=== PATIENT | male | born 1955 | race Caucasian/White ===

== ENCOUNTER 2016-12-02 20:02 | Emergency (ER) | payer BC, OTHER ==
[~2016-12-02] VITALS: Ht 170.2 cm; Wt 67.0 kg
[2016-12-02 20:39] VITALS: Ht 170.2 cm; Wt 67.0 kg
[2016-12-02] MEDS ORDERED: SOD CHLORIDE 0.9% 1,000 ML IV STA (21:53)
[2016-12-02] MEDS ORDERED: ONDANSETRON 4 MG INJ IV STA (21:53)
[2016-12-02 22:32] LABS: ADD SCAN DIFF NO
[2016-12-02 22:36] LABS: BASOPHIL # 0.1 10^3/ul (0.0-0.1); BASOPHILS % 0.7 % (0.0-2.0); EOSINOPHILS % 0.5 % (0.0-7.0); HEMATOCRIT 44.4 % (42.0-52.0); HEMOGLOBIN 15.1 g/dl (14.0-18.0); LYMPHOCYTES # 2.2 10^3/ul (0.8-2.9); LYMPHOCYTES % 28.6 % (15.0-51.0); MEAN CORPUSCULAR HEMOGLOBIN 31.6 pg (29.0-33.0); MEAN CORPUSCULAR VOLUME 92.9 fl (82.0-101.0); MEAN PLATELET VOLUME 12.5 fl (7.4-10.4); MONOCYTE # 0.6 10^3/ul (0.3-0.9); MONOCYTES % 8.3 % (0.0-11.0); NEUTROPHIL # 4.7 10^3/ul (1.6-7.5); NEUTROPHILS % 61.5 % (39.0-77.0); PLATELET COUNT 262 10^3/UL (140-415); RED BLOOD COUNT 4.78 10^6/ul (4.70-6.10); RED CELL DISTRIBUTION WIDTH 11.9 % (11.5-14.5); WHITE BLOOD COUNT 7.7 10^3/ul (4.8-10.8)
[2016-12-02 22:41] LABS: ADD UMIC NO; URINE BILIRUBIN (Dip) NEGATIVE (NEGATIVE); URINE BLOOD (Dip) NEGATIVE (NEGATIVE); URINE COLOR LT. YELLOW (YELLOW); URINE GLUCOSE (Dip) NEGATIVE (NEGATIVE); URINE KETONES (Dip) NEGATIVE (NEGATIVE); URINE LEUKOCYTE ESTERASE (Dip) NEGATIVE (NEGATIVE); URINE NITRITE (Dip) NEGATIVE (NEGATIVE); URINE TOTAL PROTEIN (Dip) NEGATIVE (NEGATIVE); URINE UROBILINOGEN (Dip) 0.2 E.U./dL (0.1-1.0)
[2016-12-02 23:08] LABS: ALANINE AMINOTRANSFERASE 41 IU/L (13-69); ALBUMIN 4.4 g/dl (3.3-4.9); ALBUMIN/GLOBULIN RATIO 1.15; ALKALINE PHOSPHATASE 73 IU/L (42-121); ANION GAP 10 (8-16); ASPARTATE AMINO TRANSFERASE 30 IU/L (15-46); BILIRUBIN,INDIRECT 0.3 mg/dl (0-1.1); BILIRUBIN,TOTAL 0.3 mg/dl (0.2-1.3); BLOOD UREA NITROGEN 23 mg/dl (7-20); CALCIUM 9.8 mg/dl (8.4-10.2); CARBON DIOXIDE 28 mmol/L (21-31); CHLORIDE 105 mmol/L (97-110); CREATININE 0.81 mg/dl (0.61-1.24); GLUCOSE 103 mg/dl (70-220); POTASSIUM 4.4 mmol/L (3.5-5.1); SODIUM 139 mmol/L (135-144); TOTAL PROTEIN 8.2 g/dl (6.1-8.1)
[2016-12-02 23:25] LABS: TROPONIN-I < 0.012 ng/ml (0.00-0.12)
[2016-12-02] MEDS ORDERED: IBUP-1542 PO (23:36)
[2016-12-02] MEDS ORDERED: ONDA4TAB14 PO (23:36)
[2016-12-02] MEDS ORDERED: TRAM50TA2 PO (23:36)
[2016-12-02] MEDS ORDERED: LOPE2CAP PO (23:36)
--- NOTE | 2016-12-02 23:40 | ERD ---
ER Documentation Chief Complaint Date/Time DATE: 12/02/16 TIME: 23:37 Chief Complaint AP with Diarrhea and no appetite. feels dizzy and dehydrated HPI This is a 61-year-old male who presents complaining of abdominal pain with diarrhea and decreased appetite. There is no blood in his diarrhea or dark tarry stools. He admits to nausea and one episode of vomiting. He states he feels weak and dizzy and his dizziness is worse with positional changes of his head. Denies fever. Denies dysuria hematuria or urinary frequency. He denies any chest pain or shortness of breath. ROS All systems reviewed and are negative except as per history of present illness. Medications Home Meds Active Scripts Ondansetron (Ondansetron Odt) 4 Mg Tab.rapdis, 4 MG PO Q6H Y for NAUSEA AND/OR VOMITING, #20 TAB Prov:ZACKARY COLLINS PA-C 12/02/16 Tramadol HCl (Tramadol HCl) 50 Mg Tablet, 50 MG PO Q4 Y for PAIN, #20 TAB Prov:ZACKARY COLLINS PA-C 12/02/16 Loperamide Hcl* (Imodium*) 2 Mg Capsule, 2 MG PO .AFTER EA LOOSE BM Y for DIARRHEA, #20 TAB Prov:ZACKARY COLLINS PA-C 12/02/16 Ibuprofen* (Motrin*) 600 Mg Tab, 600 MG PO Q6, #30 TAB Prov:ZACKARY COLLINS PA-C 12/02/16 Allergies Allergies: Coded Allergies: No Known Allergy (Verified , 06/28/14) PMhx/Soc History of Surgery: No Anesthesia Reaction: No Hx Neurological Disorder: No Hx Respiratory Disorders: No Hx Cardiac Disorders: No Hx Miscellaneous Medical Probl: Yes (gastritis) Hx Alcohol Use: No (former) Hx Substance Use: No Hx Tobacco Use: No Smoking Status: Never smoker FmHx Family History: No diabetes Physical Exam Vitals Vital Signs Date Time Temp Pulse Resp B/P Pulse Ox O2 Delivery O2 Flow Rate FiO2 12/02/16 20:39 97.6 59 20 167/86 100 Physical Exam General: well developed, well nourished, alert, nontoxic, no distress Head: normocephalic, atraumatic Neck: Supple, nontender, no lymphadenopathy, no midline tenderness Respiratory: Clear to auscaultation bilaterally, speaks in full sentences, no use of accesory muscles or labored breathing, no rales, ronchi, or wheezing Cardiovascular: RRR, No murmurs GI: soft, non tender, non distended, negative murphys sign, negative mcburneys point tenderness, no cva tenderness bilaterally, no rebound or guarding Back: no midline tenderness, no step offs or bony abnormalities, sensation to light touch in tact Extremities: moving all extremities normally, normal gait, no edema Skin: no visible rashes Neuro: CN 2-12 intact, normal speech, 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, rapid alternating movements wnl, romberg and pronator drift wnl Result Diagram: 12/02/16220112/02/162201 Results 24 hrs Laboratory Tests Test 12/02/16 22:02 12/02/16 22:07 White Blood Count 7.710^3/ul Red Blood Count 4.7810^6/ul Hemoglobin 15.1g/dl Hematocrit 44.4% Mean Corpuscular Volume 92.9fl Mean Corpuscular Hemoglobin 31.6pg Mean Corpuscular Hemoglobin Concent 34.0g/dl Red Cell Distribution Width 11.9% Platelet Count 21173^3/UL Mean Platelet Volume 12.5fl Neutrophils % 61.5% Lymphocytes % 28.6% Monocytes % 8.3% Eosinophils % 0.5% Basophils % 0.7% Nucleated Red Blood Cells % 0.0/100WBC Neutrophils # 4.710^3/ul Lymphocytes # 2.210^3/ul Monocytes # 0.610^3/ul Eosinophils # 0.010^3/ul Basophils # 0.110^3/ul Nucleated Red Blood Cells # 0.010^3/ul Sodium Level 139mmol/L Potassium Level 4.4mmol/L Chloride Level 105mmol/L Carbon Dioxide Level 28mmol/L Anion Gap 10 Blood Urea Nitrogen 23mg/dl Creatinine 0.81mg/dl Glucose Level 103mg/dl Calcium Level 9.8mg/dl Total Bilirubin 0.3mg/dl Direct Bilirubin 0.00mg/dl Indirect Bilirubin 0.3mg/dl Aspartate Amino Transf (AST/SGOT) 30IU/L Alanine Aminotransferase (ALT/SGPT) 41IU/L Alkaline Phosphatase 73IU/L Troponin I < 0.012ng/ml Total Protein 8.2g/dl Albumin 4.4g/dl Globulin 3.80g/dl Albumin/Globulin Ratio 1.15 Lipase 76U/L Urine Color LT. YELLOW Urine Clarity CLEAR Urine pH 6.0 Urine Specific [place] >=1.030 Urine Ketones NEGATIVE Urine Nitrite NEGATIVE Urine Bilirubin NEGATIVE Urine Urobilinogen 0.2 E.U./dL Urine Leukocyte Esterase NEGATIVE Urine Hemoglobin NEGATIVE Urine Glucose NEGATIVE% Urine Total Protein NEGATIVE Current Medications Medications (Trade) Dose Ordered Sig/Enriqueta Route PRN Reason Start Time Stop Time Status Last Admin Dose Admin Sodium Chloride (NS) 1,000 ml @ 1,000 mls/hr Q1H STAT IV 12/02/16 21:53 12/02/16 22:52 DC 12/02/16 22:05 Ondansetron HCl (Zofran Inj) 4 mg ONCE STAT IV 12/02/16 21:53 12/02/16 21:54 DC 12/02/16 22:05 Procedures/MDM 61-year-old male presents with abdominal pain with nausea and one episode of vomiting and nonbloody diarrhea. Patient's blood pressure was elevated (>120/80 ) but appears stable without evidence of hypertension emergency or urgency. The patient was counseled about the risks of hypertension and urged to pursue outpatient monitoring and therapy within a week with their primary care physician. His vital signs are otherwise normal. He is well-appearing, not ill -appearing, nontoxic, well-hydrated, alert and oriented in no distress. His GI examination is normal he has no tenderness throughout his abdomen. He is also complaining of some dizziness that is worse with changing positions of his head. EKG showed no evidence of acute ischemic changes or ST elevation. His labs were all normal including troponin. This is most likely viral and I gave her a prescription for pain medications, Zofran, and Imodium. I offered him CT scan of the head however he states that he will pass on the CT scan for now and see how he feels over the next couple days and return for any new or worsening symptoms. Recommended this patient follow up with her primary care doctor within 48 hours or return to the emergency room for any worsening of symptoms. However this time I do believe there is suitable for outpatient management. I answered all their questions and they agreed with the plan and were discharged home. Departure Diagnosis: Primary Impression: Dizziness Additional Impression: Diarrhea Condition: Stable Patient Instructions: Abdominal Pain, Dizziness, Unk Cause Additional Instructions: Kaushik morton doctor MAANA y kalin aretha MATTEO PARA DENTRO DE 1-2 BLANKENSHIP.Dgale a la secretaria que nosotros le instruimos hacer esta matteo.Avise o llame si rolle condicin se empeora antes de la matteo. Regresa aqui si peor o no mejor. ZACKARY COLLINS PA-C December 02, 2016 23:40
[2016-12-02] MEDS ORDERED: MECL12.574 PO (23:45)
[2016-12-02 23:54] VITALS: BP 154/78; PULSE 80; RESP 16; TEMP 98
== END 2016-12-02 23:55 | disposition home or self-care (01) ==
LOC: FTE 20:02
DX: R42 Dizziness and giddiness (principal); R19.7 Diarrhea, unspecified; R11.2 Nausea with vomiting, unspecified
CPT/HCPCS: 36415; 80053; 81003; 83690; 84484; 85025; 93005; 96374; 99284; J2405; J7030

== ENCOUNTER 2017-06-17 18:46 | Emergency (ER) | payer OTHER ==
[~2017-06-17] VITALS: Ht 172.7 cm; Wt 71.8 kg
[~2017-06-17 18:46] MED LIST: IBUP-1542 PO; LOPE2CAP PO; MECL12.574 PO; ONDA4TAB14 PO; TRAM50TA2 PO
[2017-06-17 18:53] VITALS: Ht 172.7 cm; Wt 71.8 kg
--- NOTE | 2017-06-17 19:21 | ERD ---
ER Documentation Chief Complaint Chief Complaint anxiety, feels dizzy and tired x 2 days HPI 61-year-old male, presents to the emergency department complaining of dizziness, right facial tingling, numbness for the last 2 days. The dizziness is described as things are spinning around him, mild, worsened by changes in position. Denies headaches, extremities weakness, numbness, tingling. The patient reports that he has been under a lot of stress recently due to increase workload especially during the last 5 days. Denies nausea, vomiting, chest pain , no palpitations. Treatment attempted: None. History provided by patient. ROS SYSTEMIC symptoms: no fever, chills, no night sweats, no weight loss EYE symptoms: No blurred vision, no eye discharge OTOLARYNGEAL symptoms: No hearing loss. No ear pain, no sore throat CARDIOVASCULAR symptoms: No chest pain or discomfort, no palpitations. PULMONARY symptoms: No dyspnea, no cough, no wheezing. GASTROINTESTINAL symptoms: No abdominal pain, no nausea, no vomiting, no diarrhea MUSCULOSKELETAL symptoms: No arthralgias, no muscle aches. NEUROLOGY symptoms: No confusion, no syncope, no numbness or tingling. SKIN: No rashes Medications Home Meds Active Scripts Lorazepam* (Ativan*) 0.5 Mg Tablet, 0.5 MG PO Q8H Y for ANXIETY, #10 TAB Prov:ABRIL SHARP MD 06/17/17 Meclizine Hcl* (Antivert*) 12.5 Mg Tab, 12.5 MG PO Q6H Y for DIZZINESS, #20 TAB Prov:ABRIL SHARP MD 06/17/17 Meclizine Hcl* (Antivert*) 12.5 Mg Tab, 25 MG PO Q6H Y for DIZZINESS, #20 TAB Prov:ZACKARY COLLINS PA-C 12/02/16 Ondansetron (Ondansetron Odt) 4 Mg Tab.rapdis, 4 MG PO Q6H Y for NAUSEA AND/OR VOMITING, #20 TAB Prov:ZACKARY COLLINS PA-C 12/02/16 Tramadol HCl (Tramadol HCl) 50 Mg Tablet, 50 MG PO Q4 Y for PAIN, #20 TAB Prov:ZACKARY COLLINS PA-C 12/02/16 Loperamide Hcl* (Imodium*) 2 Mg Capsule, 2 MG PO .AFTER EA LOOSE BM Y for DIARRHEA, #20 TAB Prov:ZACKARY CLOLINS LAVON 12/02/16 Ibuprofen* (Motrin*) 600 Mg Tab, 600 MG PO Q6, #30 TAB Prov:ZACKARY COLLINS LAVON 12/02/16 Allergies Allergies: Coded Allergies: No Known Allergy (Verified , 06/28/14) PMhx/Soc History of Surgery: No Anesthesia Reaction: No Hx Neurological Disorder: No Hx Respiratory Disorders: No Hx Cardiac Disorders: No Hx Miscellaneous Medical Probl: Yes (gastritis) Hx Alcohol Use: No (former) Hx Substance Use: No Hx Tobacco Use: No Smoking Status: Never smoker Physical Exam Vitals Vital Signs Date Time Temp Pulse Resp B/P Pulse Ox O2 Delivery O2 Flow Rate FiO2 06/17/17 18:53 98.2 68 20 144/80 100 Physical Exam Patient is in no acute distress, vital signs stable. Alert and fully oriented. EYES: PERRLA, EOMI, Sclera and conjunctiva appear normal. EARS: Canals clear, tympanic membranes WNL THROAT: Normal oropharynx. NECK: Supple, No lymphadenopathy. Full ROM without pain or tenderness. HEART: RRR, no rubs, murmurs, clicks or gallops. LUNGS: Clear to auscultation. ABDOMEN: Soft, non-tender without masses or hepatosplenomegaly. EXTREMITIES: No edema bilaterally. BACK: Full ROM, no deformity, normal back exam NEURO: Cranial nerves grossly intact, no motor or sensory deficit Results 24 hrs [place] [id number] Radiology Main Line: [phone] DIAGNOSTIC IMAGING REPORT Patient: FRAN STRONG : 1955 Age: 61 Sex: M MR #: [id number] DOS: 06/17/171932 Ordering MD: ABRIL SHARP MD Location: FT Room/Bed: PROCEDURE: Noncontrast CT Head. CLINICAL INDICATION: Dizziness. Right facial palsy. TECHNIQUE: Noncontrast CT of the head was obtained. The administered radiation dose was CTDI vol = 43.58 mGy, DLP = 720.23 mGy-cm. One or more of the following dose reduction techniques were used: Automated exposure control, Adjustment of the mA and/or kV according to patient size, or Use of iterative reconstruction technique. COMPARISON: There are no similar studies submitted for comparison. FINDINGS: There is no acute intracranial hemorrhage, midline shift, or mass effect. The cerebral burk-white matter differentiation appears preserved. No extra-axial collection is seen. There is mild diffuse cerebral volume loss with compensatory diffuse mild cerebral sulcal and ventricular enlargement. Mild low attenuation scattered in the periventricular and deep cerebral white matter is nonspecific, but suggestive of mild chronic microangiopathic change. The basal cisterns are preserved. The posterior fossa structures are grossly unremarkable , although suboptimally evaluated with CT secondary to beam-hardening artifact. The visualized paranasal sinuses and mastoid air cells are clear. No acute fracture or suspicious osseous lesion is identified. IMPRESSION: 1. No evidence of an acute intracranial process. 2. Mild diffuse cerebral volume loss. 3. Evidence of mild chronic microangiopathic cerebral white matter change. RPTAT: HRC Physician Deandre Date Time Electronically viewed and signed by Rosemarie Power Physician on 06/17/2017 21: 26 RC/ CC: ABRIL SHARP MD Procedures/[facility] 61 y/o male patient unremarkable medical history, presents to the ED c/o dizziness, left facial numbness and anxiety for 3 days. Vital signs stable, Physical exam unremarkable, neurovascular exam intact. Differential diagnosis include but not limited to: Facial palsy, anxiety, stroke, migraine, vestibular neuronitis, Mnire's disease. Pertinent Data: Radiology: CT head: 1. No evidence of an acute intracranial process. 2. Mild diffuse cerebral volume loss. 3. Evidence of mild chronic microangiopathic cerebral white matter change Physical examination and clinical presentation consistent most likely with anxiety. During the ED course the patient remained stable, no new complaints. Results and clinical impression discussed with patient who agrees with management. The patient is stable to be treated outpatient and will be discharged home with a Rx for meclizine and lorazepam as needed for anxiety Side effects of prescribed medications (headache, rash, nausea, vomiting, diarrhea) were reviewed. The patient was instructed to follow up with the primary care provider in the next 48h. If symptoms persist, worsen or new symptoms develop, then patient should return to the ED immediately. Instructions explained and given to patient in Ukrainian with acknowledgment and demonstrated understanding. Disclaimer: Inadvertent spelling and grammatical errors are likely due to EHR/ dictation software use and do not reflect on the overall quality of patient care. Also, please note that the electronic time recorded on this note does not necessarily reflect the actual time of the patient encounter. Departure Diagnosis: Primary Impression: Facial paresthesia Additional Impressions: Multiple somatic complaints Anxiety Condition: Stable Additional Instructions: Muchas robert por [facility] para rolle servicio. Esperamos que en rolle visita a la tab de emergencia rolle problema medico haya sido solucionado y que se sienta mucho mejor. Para estar seguros que rolle mejoria sigue en proceso, le pedimos el favor de hacer aretha britt de seguimiento medico con rolle doctor primario en los proximos 2-4 kumar. Lleve con usted estos documentos y las medicinas recetadas. Si micky sintomas empeoran y no puede edison a rolle doctor, por favor regrese a tab de emergencia. En nicole que usted no tenga un mdico de atencin primaria: Llame al mdico o clnica comunitaria de referencia que aparece abajo alcon las horas de consultorio para hacer aretha britt para que le vean. CLINICAS: [facility] [phone] [facility] [phone] [facility] [phone] [facility] [phone] [place] [id number] [phone] [facility]. [phone] ABRIL SILVER MD Jun 17, 2017 19:21
--- NOTE | 2017-06-17 21:26 | RADRPT ---
PROCEDURE: Noncontrast CT Head. CLINICAL INDICATION: Dizziness. Right facial palsy. TECHNIQUE: Noncontrast CT of the head was obtained. The administered radiation dose was CTDI vol = 43.58 mGy, DLP = 720.23 mGy-cm. One or more of the following dose reduction techniques were used: Au tomated exposure control, Adjustment of the mA and/or kV according to patient size, or Use of iterat karen reconstruction technique. COMPARISON: There are no similar studies submitted for comparison. FINDINGS: There is no acute intracranial hemorrhage, midline shift, or mass effect. The cerebral burk-white ma tter differentiation appears preserved. No extra-axial collection is seen. There is mild diffuse cer ebral volume loss with compensatory diffuse mild cerebral sulcal and ventricular enlargement. Mild l ow attenuation scattered in the periventricular and deep cerebral white matter is nonspecific, but s uggestive of mild chronic microangiopathic change. The basal cisterns are preserved. The posterior f akilah structures are grossly unremarkable, although suboptimally evaluated with CT secondary to beam- hardening artifact. The visualized paranasal sinuses and mastoid air cells are clear. No acute fract ure or suspicious osseous lesion is identified. IMPRESSION: 1. No evidence of an acute intracranial process. 2. Mild diffuse cerebral volume loss. 3. Evidence of mild chronic microangiopathic cerebral white matter change. RPTAT: HRC Physician Deandre Date Time Electronically viewed and signed by Physician Deandre on 06/17/2017 21:26 KERI/
[2017-06-17] MEDS ORDERED: MECL12.574 PO (21:42)
[2017-06-17] MEDS ORDERED: LORA-441 PO (21:42)
== END 2017-06-17 21:55 | disposition home or self-care (01) ==
LOC: FTE 18:46
DX: R20.2 Paresthesia of skin (principal); F41.9 Anxiety disorder, unspecified; R68.89 Other general symptoms and signs
CPT/HCPCS: 70450

== ENCOUNTER 2017-10-03 17:56 | Emergency (ER) | END 2017-10-03 21:41 | disposition home or self-care (01) ==

== ENCOUNTER 2018-05-03 16:01 | Emergency (ER) | END 2018-05-03 19:22 | disposition home or self-care (01) ==